=== PATIENT | female | born 1980 | race African-American/Black ===

== ENCOUNTER 2020-05-02 08:42 | Day surgery (SDC) | payer BC ==
[2020-05-02] MEDS ORDERED: FERRIC CARBOXYMALTOSE 750 MG in SODIUM CHLORIDE 250 ML IVPB ONE (13:00)
[2020-05-02 14:10] VITALS: BP 117/67; PULSE 62; TEMP 98.2
== END 2020-05-02 14:25 | disposition home or self-care (01) ==
LOC: JINFUSION 08:42
PROVIDERS: ATTEND Internal Medicine
DX: D50.9 Iron deficiency anemia, unspecified (principal)
CPT/HCPCS: 81025; 96365; J1439

== ENCOUNTER 2020-05-09 05:57 | Day surgery (SDC) | payer BC ==
[2020-05-09] MEDS ORDERED: FERRIC CARBOXYMALTOSE 750 MG in SODIUM CHLORIDE 250 ML IVPB ONE (12:00)
[2020-05-09 13:20] VITALS: BP 119/59; TEMP 98.2
[2020-05-09 13:31] VITALS: PULSE 63
== END 2020-05-09 13:58 | disposition home or self-care (01) ==
LOC: JINFUSION 05:57
PROVIDERS: ATTEND Internal Medicine
PROC: 3E033GC Introduction of Other Therapeutic Substance into Peripheral Vein, Percutaneous Approach (ICD-10-PCS; principal; 2020-05-09)
DX: D50.9 Iron deficiency anemia, unspecified (principal)
CPT/HCPCS: 81025; 96365; J1439